=== PATIENT | male | born 2000 | race Caucasian/White ===

== ENCOUNTER 2022-05-21 09:06 | Outpatient (REF) | payer OTHER, SELFPAY ==
--- NOTE | ~2022-05-21 | XR_ITS ---
EXAMINATION: XR ELBOW, RIGHT CLINICAL INFORMATION: Sprain of right elbow. COMPARISON: None available. TECHNIQUE: AP, lateral, and oblique views of the right elbow. FINDINGS: The bones and soft tissues are normal. No fracture or joint effusion. Alignment is anatomic. Joint spaces are maintained. XR/XR elbow RT min 3V IMPRESSION: Unremarkable examination.
== END 2022-05-21 09:07 | disposition home or self-care (01) ==
LOC: HO.HMGCX 09:06
PROVIDERS: PCP Nurse Practitioner Family; Visit Provider Internal Medicine
DX: S53.401A Unspecified sprain of right elbow, initial encounter (principal)
CPT/HCPCS: 73080

== ENCOUNTER 2022-06-08 09:05 | Outpatient (RCR) | payer OTHER, SELFPAY ==
--- NOTE | 2022-06-08 09:49 | MHC.PT.EP ---
[facility] [place] Office [place] Office [place] Office [address] Amparo Esparza [address] [phone] F: [phone] F: [phone] F: [phone] F: [phone] Physical Therapy Plan of Care Date of Evaluation: Date of Surgery: n/a Diagnosis: pain in thoracic spine Assessment: Patient is a 22 year old male presenting to PT with complaints of pain in his low back. Pt reports onset of pain began July 2021 due to possibly lifting boxes when on active duty. He presents today with impairments in pain, lumbar ROM, posture, hip strength, core strength. 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 Pt expresses correction goal of reducing pain, and is motivated to work towards this in PT. Clinical presentation today is most consistent with signs and sx associated with low back and pt will benefit from skilled PT 2 week x 4 weeks to address the following problems and impairments noted upon evaluation: pain, lumbar ROM, posture, hip strength, core strength. These problems limit the patient with the following functional activities: work, bending, lifting, standing, running. The prescribed treatment plan of care is medically necessary. Co-morbidities of none were identified and taken into considerations of plan of care. Pt was educated on HEP, role of PT, prognosis, POC. Frequency and Duration: The patient will be seen 2 x week x 4 weeks Short Term Goals: Pt will demonstrate improved hip MMT strength by 1/3 grade in 2 weeks for improved lumbopelvic stability. Pt will demonstrate ability to perform PPT with good core recruitment in 2 weeks for improved core strength. Pt will demonstrate improved postural awareness by sitting with biomechanically correct posture without cues throughout session to improve overall postural function in 2 weeks. Security Operations Manager Goals: Pt will demonstrate improved Angel score by 10% in 4 weeks for improved functional mobility. Pt will demonstrate ability to ambulate without worsening of sx in 4 weeks for return to PLOF. Pt will demonstrate ability to lift with good mechanics with min to no pain in 4 weeks for improved tolerance to work. Treatment Plan: Modalities to reduce pain, spasms and effusion. Manual therapy to restore motion and function. Therapeutic exercise to improve strength and flexibility. Neuromuscular re-education for posture and balance. Therapeutic activities to return to functional activities of daily living. Electronically signed by: Daina Boland, PT, DPT, ATC Please sign and return to therapist. Thank you for your referral.
--- NOTE | 2022-06-20 16:20 | MHC.PT.DC ---
[facility] [place] Office [place] Office [place] Office [address] Amparo Esparza [address] [phone] F: [phone] F: [phone] F: [phone] F: [phone] Physical Therapy Discharge Report Diagnosis: pain in thoracic spine Date of Surgery: n/a Date of Evaluation: 06/08/22 Date of Discharge: 06/20/22 Treatments to Date: 1 Cancellations to Date: 0 No Shows to Date: 2 Discharge Status: Visit Non-compliance Discharge Summary: Pt has failed to comply with [facility] attendance policy and no showed his last 2 scheduled appointments. Pt to be d/c per policy. Electronically signed by: Daina Boland PT, DPT, ATC Please sign and return to therapist. Thank you for your referral.
== END 2022-06-20 16:21 | disposition home or self-care (01) ==
LOC: HO.PTCHIC 09:05
PROVIDERS: PCP Nurse Practitioner Family; Visit Provider Internal Medicine
DX: M54.6 Pain in thoracic spine (principal)
CPT/HCPCS: 97110; 97161

== ENCOUNTER 2022-10-16 08:40 | Outpatient (AMB) | payer OTHER, SELFPAY ==
--- NOTE | 2022-10-16 09:21 | MHC.OFFWIV ---
Intake Vital Signs 10/16/22 09:29 Weight 183 lb 4 oz BP 110/70 Blood Pressure Location Rt brachial Position Sitting Pulse 69 Pulse Source Pulse Oximeter Temp 98.9 F Temp Source Oral Pulse Oximetry (%) 96 Oxygen Delivery Method Room Air Intake Visit Reasons: EP, Left knee pain/swelling [phone] Intake Note: Patient here for left knee pain and lower back pain. back pain has been persistent for about a month and knee pain has been present for about 1 week. no known injuries. Patient Tobacco Use Status: Current everyday Tobacco user Allergies No Known Allergies Allergy (Verified 10/16/22 09:22) Do you need a note to return to daycare/school/sports/work: Yes HPI EP, Left knee pain/swelling [phone] HPI Details 22 year old male patient presents today for two issues. He has had left knee pain for about 1 week. He was participating in a physical fitness event for the [employer] and was pulling a heavy item with a rope when his knee began to hurt. He did not feel a pop or crack, and did not feel any weakness in the knee. Following the initial injury, he developed swelling and pain on the lateral aspect of his left knee. He was seen at an urgent care where he had an XR done that showed a joint effusion, per patient. This has since gone down, however he continues to have pain with full knee extension. Patient also has had lower back pain for about 1 year, however this has increased significantly over the last month. He reports LBP started when he was lifting very heavy/doing deadlifts, admittedly with poor form, while training in his job in the [employer]. He reports pain and pressure in his lower back has become severe over the last month, without new inciting event. He has done PT for this however continues to have pain. Pain is constant, even with sleep/rest, and increased when rising from a bent over position. He denies radiation or weakness down his legs. Denies saddle anesthesia. [facility] Social History Alcohol intake: current Alcohol intake frequency: a few times a week Patient Tobacco Use Status: Current everyday Tobacco user Review of Systems Const All systems reviewed & are unremarkable except as noted in HPI and below Physical Exam Vital Signs: Last Vital Signs Temp 98.9 F 08/22/23 09:29 Pulse 69 10/16/22 09:29 BP 110/70 10/16/22 09:29 Pulse Ox 96 10/16/22 09:29 Oxygen Delivery Method Room Air 10/16/22 09:29 Const General: cooperative, healthy appearing, comfortable and no acute distress Resp Effort & Inspection: normal respiratory effort and able to speak in complete sentences Back/Spine/Pelvis Other: exaggerated lumbar lordosis, severe tenderness to palpation over lower L3-5 vertebrae and surrounding paraspinal musculature. Pain elicited with all lumar ROM, most significantly lumbar flexion and extension. Negative SLR b/l. sacroiliac joint testing within normal limits. Cervical Spine: normal cervical lordosis and cervical ROM normal Skin General skin exam: no rashes or lesions noted Neuro General: gait normal and deep tendon reflexes 2+ bilaterally Extrem General: Yes capillary refill normal and Yes no clubbing, cyanosis or edema Left lower extremity: knee Details: tenderness (mild effusion) Location: of the lateral joint line, abnormal ROM Details: pain with active ROM Details: with extension and knee ligament exam normal Details: valgus stress test normal, varus stress test normal and José Miguel's test normal Psych Appearance: grossly normal Mental Status: mental status grossly normal Speech and movement: Normal speech and movement present Assessment & Plan Assessment & Plan (1) Lower back pain: Code(s): M54.50 - Low back pain, unspecified Qualifiers: Chronicity: acute Back pain laterality: bilateral Sciatica presence: without sciatica Qualified Code(s): M54.50 - Low back pain, unspecified Plan: I reviewed XR done in the office and disc spaces and vertebrae appear normal. I reviewed this with the patient. I suspect pain is discogenic in nature given weightlifting-related injury/compression. He may benefit from an MRI as he has already done PT, and has been doing a home exercise program and utilizing NSAIDs. I will d/w PCP Evans Trejo. (2) Left lateral knee pain: Code(s): M25.562 - Pain in left knee Plan: Ligament exam appears normal at this time however he does have pain with extension and a mild residual effusion at the left lateral joint line. Orthopedics referral entered per patient request. Advised he ice and continue to take NSAIDs/Tylenol prn. All questions were answered and he agrees to all discussed plans. Orders: Orders XR lumbar spine 2-3V Today M54.50 - Low back pain, unspecified Referrals Orthopedics Referral M25.562 - Pain in left knee Coding Level of Care Code Est Pt Level 3 (38995) Diagnoses Lower back pain M54.50 Chronicity: acute Back pain laterality: bilateral Sciatica presence: without sciatica Left lateral knee pain M25.562
[2022-10-16 09:29] VITALS: BP 110/70; PULSE 69; TEMP 37.2; O2SAT 96
== END 2022-10-16 10:39 | disposition home or self-care (01) ==
PROVIDERS: PCP Nurse Practitioner Family; Visit Provider Nurse Practitioner Family
DX: M54.50 Low back pain, unspecified (principal); M25.562 Pain in left knee
CPT/HCPCS: 99213

== ENCOUNTER 2022-10-16 10:01 | Outpatient (REF) | payer OTHER, SELFPAY ==
--- NOTE | ~2022-10-16 | XR_ITS ---
EXAMINATION: XR LUMBOSACRAL SPINE CLINICAL INFORMATION: Back pain. COMPARISON: None available. TECHNIQUE: Three views of the lumbosacral spine. FINDINGS: The vertebral bodies and posterior elements are normal. The disc spaces are preserved and the vertebral alignment is normal. The paraspinal soft tissues are normal. XR/XR lumbar spine 2-3V IMPRESSION: Unremarkable lumbar spine.
== END 2022-10-16 10:02 | disposition home or self-care (01) ==
LOC: HO.HMGCX 10:01
PROVIDERS: Visit Provider Nurse Practitioner Family
DX: M54.50 Low back pain, unspecified (principal)
CPT/HCPCS: 72100

== ENCOUNTER 2022-11-12 08:49 | Outpatient (AMB) | payer OTHER, SELFPAY ==
--- NOTE | 2022-11-12 07:15 | A.OFFPC_ITS ---
Intake Visit Reasons: follow up on xrays/ pt req mri/[phone] Allergies No Known Allergies Allergy (Verified 10/16/22 09:22) HPI follow up on xrays/ pt req mri/[phone] HPI Details Pt c/o lower back pain. He reports radicular symptoms to his upper buttocks. He reports that this is worse with sitting or standing for long periods. Pt had an xr which was unremarkable. He has gone to PT which did not help. MRI was ordered previously but pt has not heard anything on this, will re- order. Denies any signs of cauda equina. PFSH Social History Alcohol intake: current Alcohol intake frequency: a few times a week Patient Tobacco Use Status: Current everyday Tobacco user Review of Systems Const Reports as per HPI Physical exam (Primary Care) Tobacco/Smoking Status: Tobacco use Status Patient Tobacco Use Status Current everyday Tobacco 11/12/22 07:19 Const General: cooperative Orientation/consciousness: patient oriented x3 Neuro General: patient oriented x3 Psych Appearance: grossly normal Mental Status: mental status grossly normal Speech and movement: Clear speech present Affect: normal affect Attitude: cooperative Thought process: Normal thought process present Thought content: Normal thought content present Insight: Good insight present (Psych) Judgement: Good judgement present (Psych) Telehealth Telehealth Location of provider rendering services: practice address Location of patient: address on file Patient Identification confirmed using: Name, : Yes Telehealth method: video Patient verbally consented to treatment: Yes Patient verbally consented to billing insurance company: Yes Patient informed of any privacy concerns related to visit: Yes Minutes spent on Phone/Video with Pt.: 10 Assessment and Plan Assessment & Plan (1) Low Back Pain: Code(s): M54.50 - Low back pain, unspecified Plan: MRI ordered Plan The patient agreed to the use of a medical records field technician for this encounter. Scribed f JONATHAN Tolentino-KALIN by Kati Paiz medical records field technician, on 11/12/2022 at 07:15 EST. Orders: Orders MR lumbar spine wo con Today M54.50 - Low back pain, unspecified Coding Level of Care Code Tele Est Pt Level 3 (73690) Diagnoses Low Back Pain M54.50
== END 2022-11-12 08:55 | disposition home or self-care (01) ==
LOC: HO.HMGC 08:49
PROVIDERS: PCP Nurse Practitioner Family; Visit Provider Nurse Practitioner Family
DX: M54.50 Low back pain, unspecified (principal)
CPT/HCPCS: 99213

== ENCOUNTER 2022-12-12 09:01 | Outpatient (REF) | payer OTHER, SELFPAY ==
--- NOTE | ~2022-12-12 | MR_ITS ---
EXAMINATION: MR LUMBAR SPINE WITHOUT CONTRAST CLINICAL INFORMATION: Low back pain. COMPARISON: X-ray dated 10/16/2022. TECHNIQUE: Multiplanar, multisequence imaging was obtained. FINDINGS: VERTEBRAL BODIES AND PARASPINAL STRUCTURES: The marrow signal is fairly homogeneous. Minimal endplate edematous changes noted at the L5-S1 level with reduced intradiscal signal and olxn-gu-[id number] disc space narrowing. There is also low T2 intradiscal signal without a loss of disc height at the L4-L5 level. The remaining imaged thoracolumbar discs are well-hydrated. There are no compression fractures or significant subluxations. Very mild leftward lumbar spinal curvature noted. The paraspinal soft tissues appear normal. CONUS MEDULLARIS AND CAUDA EQUINA: The distal cord, conus tip, and cauda equina nerve roots are normal. SPINAL LEVELS: L1-L2, L2-L3, and L3-L4: No disc pathology, central canal stenosis, or foraminal narrowing. L4-L5: Reduced intradiscal signal and mild disc bulge with a very small central disc protrusion. No central canal stenosis or foraminal narrowing. L5-S1: Loss of disc height with reduced intradiscal signal and shallow, broad-based central disc protrusion with an underlying annular fissure. Disc bulge present without central canal stenosis. Mild right foraminal narrowing. Bulging disc and facet spurring result in [id number] left foraminal encroachment. MR/MR lumbar spine wo con IMPRESSION: Disc degeneration and shallow, broad-based central disc protrusion with an underlying annular fissure at the L5-S1 level. No central canal stenosis. Iruu-[id number] left foraminal narrowing. Mild disc degeneration and disc bulge at the L4-L5 level with a very small central disc protrusion.
== END 2022-12-12 09:02 | disposition home or self-care (01) ==
LOC: HO.MRI 09:01
PROVIDERS: PCP Nurse Practitioner Family; Visit Provider Nurse Practitioner Family
DX: M54.50 Low back pain, unspecified (principal)
CPT/HCPCS: 72148

== ENCOUNTER 2022-12-27 10:42 | Outpatient (REF) | payer OTHER, SELFPAY ==
--- NOTE | ~2022-12-27 | XR_ITS ---
EXAMINATION: XR KNEE, LEFT CLINICAL INFORMATION: Pain in left knee COMPARISON: None available. TECHNIQUE: Three views of the left knee. FINDINGS: Large knee joint effusion. Mild medial joint space narrowing. XR/XR knee LT 3V IMPRESSION: Large joint effusion. Mild degenerative changes.
== END 2022-12-27 10:43 | disposition home or self-care (01) ==
LOC: HO.HOSX 10:42
PROVIDERS: Visit Provider Orthopaedic Surgery
DX: M25.562 Pain in left knee (principal)
CPT/HCPCS: 73562; 99202

== ENCOUNTER 2022-12-27 11:54 | Outpatient (AMB) | payer OTHER, SELFPAY ==
--- NOTE | 2022-12-27 11:57 | MHC.OFFWIV ---
Intake Vital Signs 12/27/22 11:58 Height 5 ft 11 in Weight 79.946 kg BMI 24.6 BP 110/70 Blood Pressure Location Lt brachial Position Sitting Pulse 68 Pulse Source Pulse Oximeter Temp 98.1 F Temp Source Temporal Artery Scan Pulse Oximetry (%) 99 Intake Visit Reasons: EP, sore throat (masked) Intake Note: pt is here today for sore throat Patient Tobacco Use Status: Current everyday Tobacco user Allergies No Known Allergies Allergy (Verified 12/27/22 11:58) Do you need a note to return to daycare/school/sports/work: No HPI HPI Comments History of Present Illness Details 1217 22 year old male presents w/ sore throat since saturday worsening right side of the throat is more painful than left. He reports this started after going to a college [employer] he is soon as there was multiple sick contacts. Pain is worse with swallowing. Patient has been able to eat and drink without difficulty. Denies changes in voice, drooling, fevers, chills, nausea, vomiting, abdominal pain, headache, vision changes, dizziness and weakness. Also denies chest pain and shortness of breath. Pharynx w/ errythema, b/l tonsils enlarged R>L, R tonsil w/ exudate. Uvula midline. Patient is speaking in full sentences controlling secretions well. Also noted to have right-sided submandibular lymphadenopathy. History and physical exam most likely pharyngitis/strep, unlikely peritonsillar retropharyngeal abscess no sign of threat to airway, epiglottitis. No signs of acute respiratory distress Plan will discharge on Augmentin, no known drug allergies will also give prednisone. Educated patient on diagnosis and treatment plan, answered all question, patient verbalizes understanding. At this time patient will be discharged home, advised to return with new or worsening symptoms. Educated on worrisome signs and symptoms and when to return. At this time I feel comfortable discharge home. [facility] Social History Alcohol intake: current Alcohol intake frequency: a few times a week Patient Tobacco Use Status: Current everyday Tobacco user Review of Systems Const Details: Constitutional : No Weight loss, No Fever, No Chills, No Fatigue, No Malaise ENT/Mouth : + sore throat, No Rhinorrhea Eyes: No Eye Pain, No Swelling, No Redness Cardiovascular : No Chest Pain, No SOB, No Dyspnea on Exertion, No Orthopnea, No Edema, No Palpitations Respiratory : No Cough, No Sputum, No Wheezing Gastrointestinal : No Nausea, No Vomiting, No Diarrhea, No Constipation, No abdominal Pain, No Hematochezia, No Melena Genitourinary : No Dysuria, No Urinary Frequency, No Hematuria, Musculoskeletal : No joint pain, No Myalgias, No Joint Swelling Skin : No Skin Lesions, No rash Neuro : No Weakness, No Numbness, No Dizziness, No Headache Psych : No Anxiety/Panic, No Depression All other systems reviewed and are negative All systems reviewed & are unremarkable except as noted in HPI and below Physical Exam Vital Signs: Last Vital Signs Temp 98.1 F 12/27/22 11:58 Pulse 68 12/27/22 11:58 BP 110/70 12/27/22 11:58 Pulse Ox 99 12/27/22 11:58 BMI result Body Mass Index 24.6 vss Appearance: Alert.? Oriented X3.? No acute distress.? Head: Normocephalic, atraumatic, no step-offs or deformities Eyes: Pupils equal, round and reactive to light.? ENT: Pharynx w/ errythema, b/l tonsils enlarged R>L, R tonsil w/ exudate. Uvula midline. Patient is speaking in full sentences controlling secretions well. Also noted to have right-sided submandibular lymphadenopathy. Neck: Normal inspection.? Neck supple.? CVS: Normal heart rate and rhythm.? Pulses normal.? Respiratory: No respiratory distress.? Breath sounds normal.? Abdomen: Soft and nontender.? Skin: Skin warm and dry.? Normal skin color.? Normal skin turgor.? Extremities: No lower extremity edema.? No calf ttp. 5/5 strength to bilateral upper and lower extremities Back: No midline tenderness, no C-spine tenderness, full range of motion, no CVA tenderness bilaterally Neuro: Oriented X 3.? No motor deficit.? No sensory deficit. CN 2-12 intact Results AMB Rapid Strep AMB Rapid Strep Negative Last Edit by Adrien Aragon CMA on 12/27/22 12:10 Results Reviewed Results Reviewed: Laboratory Last Values Strep Scn [facility] Negative 12/27/22 12:08 Assessment & Plan Assessment & Plan (1) Sore throat: Code(s): J02.9 - Acute pharyngitis, unspecified Plan Take your medications as prescribed. If you were prescribed antibiotics today, it is important that you take your medication to their entirety, do not skip any doses, do not finish them early. Follow-up with your primary care provider this week. Return to the emergency department with new or worsening symptoms. Such as fevers, chills, chest pain, shortness of breath, nausea, vomiting, dizziness, headache, vision changes, lethargy In case of emergency call 911 Orders: Orders AMB Rapid Strep Screen Today Z13.9 - Encounter for screening, unspecified Medications: New amoxicillin-pot clavulanate 875-125 mg 1 tab PO BID 10 days 20 tabs 0RF prednisone 40 mg (2 x 20 mg) PO DAILY 5 days 10 tabs 0RF Coding Level of Care Code Est Pt Level 3 (94872) Diagnoses Sore throat J02.9
[2022-12-27 11:58] VITALS: BP 110/70; PULSE 68; TEMP 36.7; O2SAT 99; BMI 24.6
== END 2022-12-27 12:16 | disposition home or self-care (01) ==
PROVIDERS: PCP Nurse Practitioner Family; Visit Provider Physician Assistant
DX: J02.9 Acute pharyngitis, unspecified (principal); Z13.9 Encounter for screening, unspecified
CPT/HCPCS: 87880; 99213

== ENCOUNTER 2022-12-27 14:40 | Outpatient (AMB) | payer OTHER, SELFPAY ==
--- NOTE | 2022-12-27 14:43 | MHC.OFFVIS ---
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 The patient states that he injured his knee approximately 6 months ago while participating in a truck pull exercise. The patient states that he ?felt a pop? and had acute onset of pain. Since that time his symptoms have gotten worse in spite of continued non operative treatments. He has done physical therapy which aggravated his pain. He has also tried Tylenol and anti-inflammatory medicines which gave him minimal relief. Allergies No Known Allergies Allergy (Verified 12/27/22 14:43) Medication List - Last Reconciled 12/27/22 by Dana Samaniego RN amoxicillin-pot clavulanate 875-125 mg 1 tab PO BID 10 days prednisone 40 mg (2 x 20 mg) PO DAILY 5 days PFS Social History Alcohol intake: current Alcohol intake frequency: a few times a week Patient Tobacco Use Status: Current everyday Tobacco user Physical Exam Const Other: Well-nourished well-developed very friendly male awake alert and oriented x3 in no acute distress Extrem Other: Bilateral lower extremity examination shows good capillary refill, no skin lesions noted, normal sensation light touch Left knee examination shows a minimal effusion, minimal crepitus with range of motion, tenderness along his medial and lateral joint lines, positive Donis's test, negative José Miguel's test Results AMB Rapid Strep AMB Rapid Strep Negative Last Edit by Adrien Aragon CMA on 12/27/22 12:10 Results Reviewed Results Reviewed: X-rays of the patient's left knee show minimal diffuse joint space narrowing, no acute bony abnormalities Assessment & Plan Assessment & Plan (1) Left knee pain: Code(s): M25.562 - Pain in left knee Plan: Mr. Apple presents with left knee pain and mechanical symptoms most likely due to tearing of his medial meniscus and possible lateral meniscus. Thus, I will send the patient for an MRI of his left knee for further evaluation. I will see him back once the MRI is completed to discuss the findings and treatment options. Feel will call me at any time should questions regarding his orthopedic management arise. I spent 22 minutes in reviewing the patient's records and imaging studies, seeing the patient and documenting in the medical record. Orders: Orders XR knee LT 3V Today M25.562 - Pain in left knee MR knee LT wo con Today S83.242A - Other tear of medial meniscus, current injury, left knee, initial encounter Coding Level of Care Code New Pt Level 2 (31096) Diagnoses Left knee pain M25.562
== END 2022-12-27 15:13 | disposition home or self-care (01) ==
PROVIDERS: PCP Nurse Practitioner Family; Visit Provider Orthopaedic Surgery
DX: M25.562 Pain in left knee (principal)
CPT/HCPCS: 99202

== ENCOUNTER 2023-01-03 13:05 | Outpatient (AMB) | payer OTHER, SELFPAY ==
--- NOTE | 2023-01-03 13:09 | MHC.OFFVIS ---
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 It started when he was doing a training exercise in [place] and was doing some activity and felt a popping sensation in his back. He had intense pain for number of weeks and gradually settle down but what he has been left with is a mild to moderate discomfort in the center of his low back. It is aggravated when he is doing activities or weight lifting. He tries to accommodate this by avoiding things that will put stress on his low back. He has been consistently doing exercises to try to make sure his back health is maintained, and stretching to try to alleviate the discomfort. These things to help a little but in general they do not take away the pain completely. It is not affecting his ability to sleep thankfully. He occasionally will get a little pain going down his left leg but it is not really the back pain the bring severe to the office today. He underwent an MRI showing degenerative disc disease and he is here today to have a discussion about what that means moving forward for the future. He still continues to be an active [employer] but he is allowed to avoid heavy lifting because of his back situation. He does not need to take Motrin or Tylenol at this time because the discomfort is not that bad. PMH: Otherwise healthy Social hx: He does vape 3 times a day Medications: He takes no regular medications Allergies: None Physical exam: He is awake alert oriented, no acute distress, normal neurological exam and, normal gait Imaging review: He has a lumbar MRI done here [place] showing disc degeneration mild to moderate at L4-5 with loss of disc height approximately 20%. At L5-S1 he has a severely degenerative disc in the posterior aspect of the L5 vertebral body in the S1 endplate are almost in contact. His x-rays are more convincing that this could be [id number] contact. 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 The patient has been doing all the appropriate steps so far including activity modifications, avoiding back stressors and doing appropriate therapy exercises to make sure his low back and core strength and. He has also been doing stretching exercises religiously. We reviewed his MRI together. Unfortunately, he has quite advanced disease at L5-S1 given his age. Unfortunately this is likely only to get worse over time. He also has early to middle stages of disc degeneration at L4-5 as well. All of these things can contribute to his back pain. We reviewed his images together. I told him he should avoid any kind of heavy lifting, straining, or excessive exercises that would put axial loading to his back as this would likely just aggravate things and accelerated degeneration further. Thankfully the he has been cooperative in allowing him to avoid these things. At this time he does not need surgery as the symptoms are not affecting his ability to function, but certainly it may occur down the road if he continues to worsen. I told him we would be happy to see him back over time and reassess the situation. Thank you for allowing us to care for your patient. The total time spent with this visit with this patient was 45 minutes reviewing history, physical exam, lumbar imaging review, and implementation of treatment plan or further diagnostic testing Reji Soler MD,PhD [facility] Coding Level of Care Code New Pt Level 4 (11979) Diagnoses Low Back Pain M54.50
== END 2023-01-03 13:44 | disposition home or self-care (01) ==
PROVIDERS: PCP Nurse Practitioner Family; Referring Provider Nurse Practitioner Family; Visit Provider Physician Assistant
DX: M54.50 Low back pain, unspecified (principal)
CPT/HCPCS: 99204

== ENCOUNTER → 2023-01-03 13:05 | Outpatient (BNVA) | payer OTHER, SELFPAY | PROVIDERS: PCP Nurse Practitioner Family; Referring Provider Nurse Practitioner Family; Visit Provider Physician Assistant | DX: M54.50 Low back pain, unspecified (principal); Z56.82 Military deployment status | CPT/HCPCS: 99202 ==

== ENCOUNTER 2023-01-31 09:28 | Outpatient (AMB) | payer OTHER, SELFPAY ==
--- NOTE | 2023-01-31 09:54 | AM.OFFWIN_ITS ---
Intake Vital Signs 01/31/23 09:59 Height 5 ft 11 in Weight 178 lb 2 oz BMI 24.8 BP 94/60 Blood Pressure Location Rt brachial Position Sitting Pulse 90 Pulse Source Pulse Oximeter Temp 97.9 F Temp Source Temporal Artery Scan Pulse Oximetry (%) 100 Oxygen Delivery Method Room Air Intake Visit Reasons: EP, Stitch removal Intake Note: Pt is here to have his stitches removed located above the right eyebrow. Patient Tobacco Use Status: Current everyday Tobacco user Allergies No Known Allergies Allergy (Verified 01/31/23 09:58) Do you need a note to return to daycare/school/sports/work: No HPI HPI Comments History of Present Illness Details This is a 22-year-old male with no stated past medical history presenting for suture removal. On SaturdayJanuary 26 the patient had 5 sutures placed at [facility] above his right eyebrow following injuries sustained in a skateboard accident. Additionally, patient had 7 maximo placed in his scalp. Patient is requesting removal of the sutures as he was advised to keep the maximo intact for 14 days. Patient denies having any headaches, lightheadedness, visual changes or neck pain and he has no concerns related specifically to the sutures. [facility] Social History Alcohol intake: current Alcohol intake frequency: a few times a week Patient Tobacco Use Status: Current everyday Tobacco user Review of Systems Const All systems reviewed & are unremarkable except as noted in HPI and below Eyes Reports as per HPI ENT Reports no additional complaints Skin/Breast Reports system reviewed and no additional complaints, except as documented Physical Exam Vital Signs: Last Vital Signs Temp 97.9 F 01/31/23 09:59 Pulse 90 01/31/23 09:59 BP 94/60 01/31/23 09:59 Pulse Ox 100 01/31/23 09:59 Oxygen Delivery Method Room Air 01/31/23 09:59 BMI result Body Mass Index 24.8 Const General: cooperative, healthy appearing, comfortable and no acute distress Nutritional Appearance: average body habitus Orientation/consciousness: patient oriented x3 Limitations: no limitations Skin Other: Five simple interrupted sutures intact above lateral aspect of the right eyebrow; no surrounding erythema, edema or exudates. Neuro General: patient oriented x3 Psych Appearance: grossly normal Mental Status: mental status grossly normal Insight: Good insight present (Psych) Judgement: Good judgement present (Psych) Assessment & Plan Assessment & Plan (1) Encounter for removal of sutures: Code(s): Z48.02 - Encounter for removal of sutures Plan: All five sutures are easily removed from the face; bacitracin is applied thereafter. Patient will return in 7-10 days to have the maximo removed from his scalp. Coding Level of Care Code New Pt Level 3 (36785) Diagnoses Encounter for removal of sutures Z48.02 Time Spent (min) 25
[2023-01-31 09:59] VITALS: BP 94/60; PULSE 90; TEMP 36.6; O2SAT 100; BMI 24.8
== END 2023-01-31 10:48 | disposition home or self-care (01) ==
PROVIDERS: PCP Nurse Practitioner Family; Visit Provider Nurse Practitioner Family
DX: Z48.02 Encounter for removal of sutures (principal)
CPT/HCPCS: 15853; 99212

== ENCOUNTER 2023-02-05 14:02 | Outpatient (AMB) | payer OTHER, SELFPAY ==
--- NOTE | 2023-02-05 14:03 | AM.OFFWIN_ITS ---
Intake Vital Signs 02/05/23 14:08 Height 5 ft 11 in Weight 80.286 kg BMI 24.7 BP 120/72 Blood Pressure Location Rt brachial Position Sitting Pulse 92 Pulse Source Pulse Oximeter Temp 97.1 F Temp Source Temporal Artery Scan Pulse Oximetry (%) 98 Oxygen Delivery Method Room Air Intake Visit Reasons: EP Needs 7 maximo removed Intake Note: pt is here todasy for 7 maximo be removed Patient Tobacco Use Status: Current everyday Tobacco user Allergies No Known Allergies Allergy (Verified 02/05/23 14:09) Do you need a note to return to daycare/school/sports/work: No HPI HPI Comments History of Present Illness Details 22-year-old male presents requesting sta ple removal. He had them placed on January 26. He has 7 maximo to his scalp. No complaints. Denies headache, lightheadedness, vision changes, neck pain, no concerns related to the maximo. Physical exam 9 intact maximo ( patient thought he had 7) Planned staple removal Educated patient on diagnosis and treatment plan, answered all question, patient verbalizes understanding. At this time patient will be discharged home, advised to return with new or worsening symptoms. Educated on worrisome signs and symptoms and when to return. At this time I feel comfortable discharge home. [facility] Social History Alcohol intake: current Alcohol intake frequency: a few times a week Patient Tobacco Use Status: Current everyday Tobacco user Review of Systems Const Details: Constitutional : No Weight loss, No Fever, No Chills, No Fatigue, No Malaise ENT/Mouth : No sore throat, No Rhinorrhea Eyes: No Eye Pain, No Swelling, No Redness Cardiovascular : No Chest Pain, No SOB, No Dyspnea on Exertion, No Orthopnea, No Edema, No Palpitations Respiratory : No Cough, No Sputum, No Wheezing Gastrointestinal : No Nausea, No Vomiting, No Diarrhea, No Constipation, No abdominal Pain, No Hematochezia, No Melena Genitourinary : No Dysuria, No Urinary Frequency, No Hematuria, Musculoskeletal : No joint pain, No Myalgias, No Joint Swelling Skin : No Skin Lesions, No rash, + healing laceration Neuro : No Weakness, No Numbness, No Dizziness, No Headache Psych : No Anxiety/Panic, No Depression All other systems reviewed and are negative All systems reviewed & are unremarkable except as noted in HPI and below Physical Exam Vital Signs: Last Vital Signs Temp 97.1 F 02/05/23 14:08 Pulse 92 02/05/23 14:08 BP 120/72 02/05/23 14:08 Pulse Ox 98 02/05/23 14:08 Oxygen Delivery Method Room Air 02/05/23 14:08 BMI result Body Mass Index 24.7 vss Appearance: Alert.? Oriented X3.? No acute distress.? Head: Normocephalic, atraumatic, no step-offs or deformities + 9 maximo to head no overlying skin changes Eyes: Pupils equal, round and reactive to light.? Neck: Normal inspection.? Neck supple.? CVS: Normal heart rate and rhythm.? Pulses normal.? Respiratory: No respiratory distress.? Breath sounds normal.? Abdomen: Soft and nontender.? Skin: Skin warm and dry.? Normal skin color.? Normal skin turgor.? Extremities: No lower extremity edema.? No calf ttp. 5/5 strength to bilateral upper and lower extremities Neuro: Oriented X 3.? No motor deficit.? No sensory deficit. CN 2-12 intact Assessment & Plan Assessment & Plan (1) Removal of maximo: Code(s): Z48.02 - Encounter for removal of sutures Plan Take your medications as prescribed. If you were prescribed antibiotics today, it is important that you take your medication to their entirety, do not skip any doses, do not finish them early. Follow-up with your primary care provider this week. Return to the emergency department with new or worsening symptoms. Such as fevers, chills, chest pain, shortness of breath, nausea, vomiting, dizziness, headache, vision changes, lethargy In case of emergency call 911 Coding Level of Care Code Est Pt Level 3 (95865) Diagnoses Removal of maximo Z48.02
[2023-02-05 14:08] VITALS: BP 120/72; PULSE 92; TEMP 36.2; O2SAT 98; BMI 24.7
== END 2023-02-05 15:47 | disposition home or self-care (01) ==
PROVIDERS: PCP Nurse Practitioner Family; Visit Provider Physician Assistant
DX: Z48.02 Encounter for removal of sutures (principal)
CPT/HCPCS: 15853; 99212

== ENCOUNTER 2023-02-11 14:25 | Outpatient (REF) | payer OTHER, SELFPAY ==
--- NOTE | ~2023-02-11 | MR_ITS ---
EXAMINATION: MR KNEE WITHOUT CONTRAST, LEFT CLINICAL INFORMATION: Tear medial meniscus. COMPARISON: X-ray the left knee December 2022 TECHNIQUE: MRI of the knee without contrast was performed using routine sequences on a high-field scanner. FINDINGS: MENISCI: Medial Meniscus: Intact Lateral Meniscus: Intact LIGAMENTS: Cruciate: Intact Collateral: Intact EXTENSOR MECHANISM: Intact ARTICULAR CARTILAGE/BONE: Patellofemoral Compartment: Normal Medial Compartment: Normal Lateral Compartment: Normal JOINT FLUID AND BURSAE: Normal MR/MR knee LT wo con IMPRESSION: Normal MRI of the left knee
== END 2023-02-11 14:26 | disposition home or self-care (01) ==
LOC: HO.MRI 14:25
PROVIDERS: PCP Nurse Practitioner Family; Visit Provider Orthopaedic Surgery
DX: S83.242A Other tear of medial meniscus, current injury, left knee, initial encounter (principal)
CPT/HCPCS: 73721

== ENCOUNTER 2023-02-27 10:53 | Outpatient (AMB) | payer OTHER, SELFPAY ==
[2023-02-27 11:48] VITALS: BP 112/76; PULSE 98; TEMP 36.8; O2SAT 98; BMI 25.8
--- NOTE | 2023-02-27 11:48 | MHC.OFFWIV ---
Intake Vital Signs 02/27/23 11:48 Height 5 ft 11 in Weight 185 lb BMI 25.8 BP 112/76 Blood Pressure Location Lt brachial Position Sitting Pulse 98 Pulse Source Pulse Oximeter Temp 98.3 F Temp Source Temporal Artery Scan Pulse Oximetry (%) 98 Oxygen Delivery Method Room Air Intake Visit Reasons: EST/sore throat ([phone]) Intake Note: pt is here today for sore throat started 2 days ago Patient Tobacco Use Status: Current everyday Tobacco user Allergies No Known Allergies Allergy (Verified 02/27/23 12:09) Medication List - Last Reconciled 02/27/23 by Paul Goldberg MD No Known Home Meds Do you need a note to return to daycare/school/sports/work: Yes HPI EST/sore throat ([phone]) HPI Details Patient presents for a sick visit. Reporting symptoms of sinus congestion, sore throat and difficulty swallowing. Low-grade fever. No family member is sick. No recent travel. Patient reports symptoms of malaise and fatigue. [facility] Social History Alcohol intake: current Alcohol intake frequency: a few times a week Patient Tobacco Use Status: Current everyday Tobacco user Physical Exam Vital Signs: Last Vital Signs Temp 98.3 F 02/27/23 11:48 Pulse 98 02/27/23 11:48 BP 112/76 02/27/23 11:48 Pulse Ox 98 02/27/23 11:48 Oxygen Delivery Method Room Air 02/27/23 11:48 BMI result Body Mass Index 25.8 Const General: cooperative and healthy appearing Nutritional Appearance: well nourished Orientation/consciousness: patient oriented x3 Limitations: no limitations HEENT Head: Yes normal to inspection Eyes General: appearance normal, both eyes and all related structures Neck Neck: Yes normal visual inspection Chest Chest palpation & inspection: normal palpation of entire chest wall Resp Effort & Inspection: normal respiratory effort Neuro General: patient oriented x3 Assessment & Plan Assessment & Plan (1) Upper respiratory tract infection: Code(s): J06.9 - Acute upper respiratory infection, unspecified Plan: Antibiotics ordered. Increase fluid intake. Tylenol for aches and pains. If symptoms worsen, follow-up here for a recheck. Coding Level of Care Code Est Pt Level 3 (07719) Diagnoses Upper respiratory tract infection J06.9
== END 2023-02-27 12:33 | disposition home or self-care (01) ==
PROVIDERS: PCP Nurse Practitioner Family; Visit Provider Internal Medicine
DX: J06.9 Acute upper respiratory infection, unspecified (principal)
CPT/HCPCS: 99213

== ENCOUNTER 2023-03-21 13:32 | Outpatient (AMB) | payer OTHER, SELFPAY ==
[2023-03-21 13:39] VITALS: BP 118/76; PULSE 90; O2SAT 96; BMI 24.5
--- NOTE | 2023-03-21 13:39 | MHC.PC.OV ---
Vital Signs 03/21/23 13:39 Height 5 ft 11 in Weight 175 lb 6 oz BMI 24.5 BP 118/76 Blood Pressure Location Rt brachial Position Sitting Pulse 90 Pulse Source Pulse Oximeter Pulse Oximetry (%) 96 Oxygen Delivery Method Room Air Intake Visit Reasons: Physical exam Intake Note: Pt is here for his Annual PE Allergies No Known Allergies Allergy (Verified 03/21/23 13:41) Medication List - Last Reconciled 03/21/23 by ZEUS Espinal No Known Home Meds Tobacco use date assessed: 03/21/23 Dental Screening Dental Screen Date: 03/21/23 Did you have a dental visit in the last 12 months?: Yes Did you have a dental problem in the last 6 months where you did not have access to dental care?: No Was dental information given to patient?: Patient has dentist HPI Physical exam HPI Details Pt is here for a PE. Will order labs. [facility] Social History Housing: Apartment Alcohol intake: current Alcohol intake frequency: a few times a week Patient Tobacco Use Status: Current everyday Tobacco user Cigarettes Per Day: 1 e-Cigarette/Vaping Use: Currently Using service: Yes Current occupational status: employed Current occupation: Active Cognitive needs: No Hearing needs: No Vision needs: No Questionnaire PHQ-9 Over the last 2 weeks, how often have you been bothered by any of the following problems? 1. Little interest or pleasure in doing things: several days 2. Feeling down, depressed, or hopeless: several days 3. Trouble falling or staying asleep, or sleeping too much: not at all 4. Feeling tired or having little energy: several days 5. Poor appetite or overeating: several days 6. Feeling bad about yourself - or that you are a failure or have let yourself or your family down: not at all 7. Trouble concentrating on things, such as reading the newspaper or watching television: not at all 8. Moving or speaking so slowly that other people could have noticed. Or the opposite - being so fidgety or restless that you have been moving around a lot more than usual: not at all 9. Thoughts that you would be better off or of hurting yourself in some way: not at all Total score: 4 Source: Developed by Drs. Miguel Lowery, Kalin Kraft and colleagues, with an educational randolph from [employer]. Thrive Questionnaire Date Thrive assessed: 03/21/23 I am a: Patient What is your living situation today?: I have a steady place to live Within the past 12 months, did the food you bought not last and you didn't have the money to get more?: Never true Within the past 12 months, did you worry whether your food would run out before you got money to buy more?: Never true Do you have trouble paying for medicines?: No Do you have trouble getting transportation to medical appointments?: No Do you have trouble paying your heating and electricity bill?: No Do you have trouble taking care of your child, family member or friend?: No Do you have trouble with day-to-day activities such as bathing, preparing meals, shopping, managing finances, etc.?: No Are you currently unemployed and looking for a job?: No Are you interested in more education?: Yes THRIVE Score: 0 AUDIT C Alcohol Use Questionnaire (AUDIT-C) 1. How often do you have a drink containing alcohol?: Monthly or less 2. How many drinks containing alcohol do you have on a typical day when you are drinking?: 7 to 9 3. How often do you have six or more drinks on one occasion?: Less than monthly Total Score: 5 JOSSUE-7 AMB Questionnaire JOSSUE-7 Date JOSSUE - 7 assessed: 03/21/23 Feeling nervous, anxious, or on edge: 2 = More than half the days Not being able to stop or control worryin = Several days Worrying too much about different things: 1 = Several days Trouble relaxin = Several days Being so restless that it is hard to sit still: 2 = More than half the days Becoming easily annoyed or irritable: 1 = Several days Feeling afraid as if something awful might happen: 0 = Not at all Total JOSSUE-7 score (0-4 normal; 5-9 mild; 10-14 moderate; 15-21 severe): 8 Source: Developed by Kinjal Kelley Kurt Kroenke and colleagues, with an educational randolph from [employer]. Review of Systems Const Denies chills and Denies fever(s) Eyes Denies blurry vision ENT Denies vertigo, Denies dizziness and Denies sore throat Card Denies chest pain at rest, Denies chest pain with activity, Denies diaphoresis, Denies dyspnea and Denies dyspnea on exertion Resp Denies cough, Denies dyspnea, Denies dyspnea on exertion and Denies wheezing GI Denies abdominal pain, Denies melena, Denies hematochezia, Denies constipation, Denies diarrhea and Denies loose stools Denies hematuria Musc Denies numbness and Denies tingling Skin/Breast Denies lesions Neuro Denies vertigo, Denies dizziness, Denies numbness and Denies tingling Psych Denies anxiety, Denies depression, Denies homicidal ideation, Denies suicidal ideation and Denies other (substance abuse) Aller/Immun Denies wheezing Physical exam (Primary Care) Vital Signs: Last Vital Signs Pulse 90 03/21/23 13:39 BP 118/76 03/21/23 13:39 Pulse Ox 96 03/21/23 13:39 Oxygen Delivery Method Room Air 03/21/23 13:39 BMI result Body Mass Index 24.5 Tobacco/Smoking Status: Tobacco use Status Tobacco use date assessed 03/21/23 03/21/23 13:45 Patient Tobacco Use Status Current everyday Tobacco 03/21/23 13:45 e-Cigarette/Vaping Use Currently Using 03/21/23 13:45 Const General: cooperative Nutritional Appearance: well nourished Orientation/consciousness: patient oriented x3 HENMT Head: Yes normal to inspection, Yes normocephalic and Yes atraumatic Ears: TM's normal bilaterally Eyes General: appearance normal, both eyes and all related structures Alignment and Position: alignment normal and position normal Neck Neck: Yes normal visual inspection and Yes no lymphadenopathy Thyroid: Thyroid normal Resp Effort & Inspection: normal respiratory effort Auscultation: clear to auscultation bilaterally Cardio Rate: regular rate Rhythm: regular rhythm Heart sounds: S1 normal heart sound present, S2 normal heart sound present and no murmurs GI Palpation (GI): Soft to palpation and nontender Auscultation: normal bowel sounds Male General Exam: Yes normal external exam Penis: normal penis Scrotum: scrotum normal, testes descended bilaterally and no inguinal hernias Testes: no testicular mass Skin Rashes: no rashes Neuro General: patient oriented x3, moves all extremities, no focal motor deficits and deep tendon reflexes 2+ bilaterally Romberg Test: Negative Psych Appearance: grossly normal Mental Status: mental status grossly normal Speech and movement: Normal speech and movement present Affect: normal affect Attitude: cooperative Thought process: Normal thought process present Thought content: Normal thought content present Insight: Good insight present (Psych) Judgement: Good judgement present (Psych) Assessment and Plan Assessment & Plan (1) Physical exam: Code(s): Z00.00 - Encounter for general adult medical examination without abnormal findings Plan: Labs ordered Plan The patient agreed to the use of a family practice medical doctor for this encounter. Scribed for ZEUS Lopez by Kati Paiz family practice medical doctor, on 03/21/2023 at 13:50 EST. Orders: Orders Complete Blood Count Auto Diff Today Z00.00 - Encounter for general adult medical examination without abnormal findings TSH reflex Free T4 Today Z00.00 - Encounter for general adult medical examination without abnormal findings UA CC w/rflx Micro + Cult Today Z00.00 - Encounter for general adult medical examination without abnormal findings Comprehensive [place]. Panel Fast Today Z00.00 - Encounter for general adult medical examination without abnormal findings Lipid Panel Today Z00.00 - Encounter for general adult medical examination without abnormal findings Coding Level of Care Code Est Pt Prev Care 18-39y(65711) Diagnoses Physical exam Z00.00
== END 2023-03-21 14:07 | disposition home or self-care (01) ==
PROVIDERS: PCP Nurse Practitioner Family; Visit Provider Nurse Practitioner Family
DX: Z00.00 Encounter for general adult medical examination without abnormal findings (principal)
CPT/HCPCS: 99395

== ENCOUNTER 2023-09-09 15:04 | Outpatient (AMB) | payer OTHER, SELFPAY ==
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
[2023-09-09 15:10] VITALS: BP 124/76; PULSE 99; TEMP 37.1; O2SAT 95; BMI 26.3
== END 2023-09-09 15:20 | disposition home or self-care (01) ==
PROVIDERS: PCP Nurse Practitioner Family; Visit Provider Physician Assistant
DX: S86.919A Strain of unspecified muscle(s) and tendon(s) at lower leg level, unspecified leg, initial encounter (principal)
CPT/HCPCS: 99213

== ENCOUNTER 2023-09-17 09:24 | Outpatient (AMB) | payer OTHER, SELFPAY ==
--- NOTE | 2023-09-17 09:33 | A.OFFPC_ITS ---
Vital Signs 09/17/23 09:34 Height 5 ft 11 in Weight 189 lb BMI 26.4 BP 134/78 Blood Pressure Location Lt brachial Position Sitting Pulse 97 Pulse Source Pulse Oximeter Pulse Oximetry (%) 97 Oxygen Delivery Method Room Air Intake Visit Reasons: 6 month follow up Intake Note: Patient here to discuss next steps in treatment for back pain, needs lidocaine patches. Allergies No Known Allergies Allergy (Verified 09/17/23 09:35) Medication List - Last Reconciled 09/17/23 by ZEUS Espinal lidocaine 5% 1 patch topical DAILY Tobacco use date assessed: 03/21/23 Dental Screening Dental Screen Date: 03/21/23 HPI 6 month follow up HPI Details Pt c/o ongoing lower back pain. He had a previous MRI which showed disc degeneration and shallow, broad-based central disc protrusion with an underlying annular fissure at the L5-S1 level. No central canal stenosis. [id number] left foraminal narrowing. Mild disc degeneration and disc bulge at the L4-L5 level with a very small central disc protrusion. Pt has gone to PT with some relief. Recommended pt continue home stretches and exercises. Will send lidocaine patches. Denies any signs of cauda equina. Pt will be moving to [place] in the near future. [facility] Social History Housing: Apartment Alcohol intake: current Alcohol intake frequency: a few times a week Patient Tobacco Use Status: Current everyday Tobacco user Cigarettes Per Day: 1 e-Cigarette/Vaping Use: Currently Using service: Yes Current occupational status: employed Current occupation: Active Cognitive needs: No Hearing needs: No Vision needs: No Questionnaire Thrive Questionnaire Date Thrive assessed: 03/21/23 I am a: Patient What is your living situation today?: I have a steady place to live Within the past 12 months, did the food you bought not last and you didn't have the money to get more?: Never true Within the past 12 months, did you worry whether your food would run out before you got money to buy more?: Never true Do you have trouble paying for medicines?: No Do you have trouble getting transportation to medical appointments?: No Do you have trouble paying your heating and electricity bill?: No Do you have trouble taking care of your child, family member or friend?: No Do you have trouble with day-to-day activities such as bathing, preparing meals, shopping, managing finances, etc.?: No Are you currently unemployed and looking for a job?: No Are you interested in more education?: No Please select the resources that you would like help with: Housing/Snf Currently or been in a relationship where the following occur: No concerns reported and I choose not to answer THRIVE Score: 0 AUDIT C Alcohol Use Questionnaire (AUDIT-C) 1. How often do you have a drink containing alcohol?: 2-4 times a month 2. How many drinks containing alcohol do you have on a typical day when you are drinking?: 7 to 9 3. How often do you have six or more drinks on one occasion?: Monthly Total Score: 7 JOSSUE-7 AMB Questionnaire JOSSUE-7 Date JOSSUE - 7 assessed: 03/21/23 Feeling nervous, anxious, or on edge: 0 = Not at all Not being able to stop or control worryin = Not at all Worrying too much about different things: 0 = Not at all Trouble relaxin = Not at all Being so restless that it is hard to sit still: 0 = Not at all Becoming easily annoyed or irritable: 0 = Not at all Feeling afraid as if something awful might happen: 0 = Not at all Total JOSSUE-7 score (0-4 normal; 5-9 mild; 10-14 moderate; 15-21 severe): 0 Source: Developed by Drs. Miguel Lowery, Kinjal Wyatt, Kalin Batista and colleagues, with an educational randolph from [employer]. Review of Systems Const Reports as per HPI Physical exam (Primary Care) Vital Signs: Last Vital Signs Pulse 97 09/17/23 09:34 BP 134/78 09/17/23 09:34 Pulse Ox 97 09/17/23 09:34 Oxygen Delivery Method Room Air 09/17/23 09:34 BMI result Body Mass Index 26.4 Tobacco/Smoking Status: Tobacco use Status Tobacco use date assessed 03/21/23 09/17/23 09:38 Patient Tobacco Use Status Current everyday Tobacco 09/17/23 09:38 e-Cigarette/Vaping Use Currently Using 09/17/23 09:38 Thrive Assessment: Date of Thrive Assessment Date Thrive assessed 03/21/23 09/17/23 09:38 Currently or been in a relationship where the following occur: No concerns reported and I choose not to answer Const General: cooperative Orientation/consciousness: patient oriented x3 Resp Effort & Inspection: normal respiratory effort Auscultation: clear to auscultation bilaterally Cardio Rate: regular rate Rhythm: regular rhythm Heart sounds: S1 normal heart sound present and S2 normal heart sound present Back/Spine/Pelvis Other: able to heel and toe walk without radicular symptoms, no radicular symptoms with pt in supine position with bilat knee to chest raises and BLE raises Neuro General: patient oriented x3 Psych Appearance: grossly normal Mental Status: mental status grossly normal Speech and movement: Normal speech and movement present Affect: normal affect Attitude: cooperative Thought process: Normal thought process present Thought content: Normal thought content present Insight: Good insight present (Psych) Judgement: Good judgement present (Psych) Assessment and Plan Assessment & Plan (1) Lumbar herniated disc: Code(s): M51.26 - Other intervertebral disc displacement, lumbar region Plan: continue stretches and exercises, pt will be moving to [place] in the near [facility]. Plan The patient agreed to the use of a medical stenographer for this encounter. Scribed for ZEUS Lopez by Kati Paiz medical stenographer, on 09/17/2023 at 09:50 EST. Medications: New lidocaine 5% leave on most painful area for up to 12 hrs 1 patch topical DAILY 30 ea 0RF Coding Level of Care Code Est Pt Level 3 (25669) Diagnoses Lumbar herniated disc M51.26
[2023-09-17 09:34] VITALS: BP 134/78; PULSE 97; O2SAT 97; BMI 26.4
== END 2023-09-17 10:00 | disposition home or self-care (01) ==
PROVIDERS: PCP Nurse Practitioner Family; Visit Provider Nurse Practitioner Family
DX: M51.26 Other intervertebral disc displacement, lumbar region (principal)
CPT/HCPCS: 99213